=== PATIENT | female | born 1970 | race Caucasian/White ===

== ENCOUNTER 2021-06-03 16:46 | Emergency (ER) | payer BC ==
[2021-06-03] MEDS ORDERED: Boostrix 0.5 ML (Tdap) VIAL ONE (17:39)
[2021-06-03] MEDS ORDERED: Morphine 4 MG/ML VIAL ONE (17:39)
[2021-06-03] MEDS ORDERED: Lidocaine 2% PF 5 ML VIAL ONE (18:08)
[2021-06-03] MEDS ORDERED: Fentanyl 100 MCG/2 ML VIAL ONE (18:08)
[2021-06-03] MEDS ORDERED: Lidocaine 1% w/Epinephrine 1:100K 20 ML VIAL ONE (19:21)
== END 2021-06-03 20:39 | disposition home or self-care (01) ==
LOC: ERS 16:46
DX: S52.572A Other intraarticular fracture of lower end of left radius, initial encounter for closed fracture (principal); S52.612A Displaced fracture of left ulna styloid process, initial encounter for closed fracture; S51.011A Laceration without foreign body of right elbow, initial encounter; Z23 Encounter for immunization; X58.XXXA Exposure to other specified factors, initial encounter
CPT/HCPCS: 12002; 90471; 90715; 96374; 96375; G0390; J2001; J2270; J3010

== ENCOUNTER 2021-06-10 10:10 | Day surgery (SDC) | payer OTHER, BC ==
[2021-06-07 10:36] VITALS: BMI 30.5
[2021-06-10] MEDS ORDERED: Fentanyl 100 MCG/2 ML VIAL ONE ×2 (11:26→11:31)
[2021-06-10] MEDS ORDERED: Midazolam HCl 2 mg/2 ml Vial ONE (11:31)
[2021-06-10] MEDS ORDERED: Bupivacaine HCl 0.5%/Epinephrine 1:200,000/PF 30 ml Vial ONE (11:45)
[2021-06-10] MEDS ORDERED: Lidocaine 1% PF 5 ML VIAL ONE (12:25)
[2021-06-10] MEDS ORDERED: Albuterol Sulfate HFA (OR ONLY) ONE (12:25)
[2021-06-10] MEDS ORDERED: Glycopyrrolate 0.2 MG/ML 5 ML SYRINGE ONE (12:25)
[2021-06-10] MEDS ORDERED: Dexamethasone 20 MG/5 ML VIAL ONE (12:25)
[2021-06-10] MEDS ORDERED: PROPOFOL 200 MG/20 ML VIAL ONE (12:25)
[2021-06-10] MEDS ORDERED: Ondansetron PF 4 MG/2 ML Vial ONE (12:25)
[2021-06-10] MEDS ORDERED: Ketorolac Tromethamine 30 MG/ML VIAL ONE (12:25)
[2021-06-10] MEDS ORDERED: ePHEDrine 50 MG/ML VIAL ONE (12:25)
[2021-06-10] MEDS ORDERED: Labetalol HCl 100 MG/20 ML VIAL ONE (14:06)
[2021-06-10] MEDS ORDERED: hydrALAZINE 20 MG/ML VIAL ONE (14:56)
== END 2021-06-10 15:23 | disposition home or self-care (01) ==
LOC: SDC 10:10
PROVIDERS: ATTEND Orthopaedic Surgery
PROC: 0PSJ04Z Reposition Left Radius with Internal Fixation Device, Open Approach (ICD-10-PCS; principal; 2021-06-10)
PROC: 3E0T3BZ Introduction of Anesthetic Agent into Peripheral Nerves and Plexi, Percutaneous Approach (ICD-10-PCS; principal; 2021-06-10)
DX: S52.572A Other intraarticular fracture of lower end of left radius, initial encounter for closed fracture (principal); S52.612A Displaced fracture of left ulna styloid process, initial encounter for closed fracture; I11.0 Hypertensive heart disease with heart failure; I50.9 Heart failure, unspecified; E78.5 Hyperlipidemia, unspecified; F17.210 Nicotine dependence, cigarettes, uncomplicated; F10.10 Alcohol abuse, uncomplicated; Z95.5 Presence of coronary angioplasty implant and graft; Z90.710 Acquired absence of both cervix and uterus; Z98.51 Tubal ligation status; Z98.890 Other specified postprocedural states; Z79.899 Other long term (current) drug therapy; Z88.8 Allergy status to other drugs, medicaments and biological substances; V29.9XXA Motorcycle rider (driver) (passenger) injured in unspecified traffic accident, initial encounter
CPT/HCPCS: 76000; C1713; J0360; J0690; J1100; J1885; J2250; J2405; J2704; J3010; J3490